=== PATIENT | female | born 1945 | race Caucasian/White ===

== ENCOUNTER 2024-12-17 09:00 | Day surgery (SDC) | payer OTHER, SELFPAY ==
--- NOTE | 2024-12-17 12:30 | ITS.CL.CARDI ---
Sales Order Processor - Cardioversion
Cardioversion
Procedure Report:
Electrophysiology DC cardioversion report
Procedures performed:
1. DC cardioversion to normal sinus rhythm
Indication: Persistent atrial fibrillation
History of present illness: The patient is a 79-year-old woman who is referred for cardioversion. She has been compliant with Eliquis without interruption for over 3 weeks without interruption or missed doses.
Description of procedure: Informed consent was obtained. Sedation provided by anesthesia staff. The patient was cardioverted with 200 J which was unsuccessful. She was then successfully cardioverted with 360 J to normal sinus rhythm. The patient
tolerated the procedure without difficulty.
Complications: None
Assessment/Plan:
1. Continue medical therapy as prescribed with clinical follow-up as scheduled.
== END 2024-12-17 11:38 ==
LOC: CATH 09:00
PROVIDERS: ATTENDING PHYSICIAN Internal Medicine Interventional Cardiology; FAMILY PHYSICIAN Family Medicine; OTHER PHYSICIAN Internal Medicine Cardiovascular Disease
DX: I48.19 Other persistent atrial fibrillation (principal); Z79.01 Long term (current) use of anticoagulants; J44.9 Chronic obstructive pulmonary disease, unspecified; I11.0 Hypertensive heart disease with heart failure; I50.32 Chronic diastolic (congestive) heart failure; Z79.899 Other long term (current) drug therapy; Z79.890 Hormone replacement therapy; Z79.84 Long term (current) use of oral hypoglycemic drugs; Z79.85 Long-term (current) use of injectable non-insulin antidiabetic drugs
CPT/HCPCS: 92960; 93005

== ENCOUNTER 2025-01-22 09:54 | Day surgery (SDC) | payer OTHER, SELFPAY ==
[2025-01-22 10:49] VITALS: BMI 45.1
--- NOTE | 2025-01-22 11:02 | ITS.CL.CARDI ---
Block Inspector - Cardioversion
Cardioversion
Procedure Report:
Date of Procedure: 01/22/25
Procedure: Cardioversion
Indication: Symptomatic atrial fibrillation
Performing Physician: Korey Pozo MD
Technique: The patient was brought to the holding area. Signed informed consent was obtained. A time out was called and performed. The patient was anesthetized by the anesthesia service. Anticoagulation status was reviewed and appropriate. R2 pads
were placed anteriorly and posteriorly. A 200 J synchronized biphasic shock restored normal sinus rhythm without significant bradycardia. There were no complications.
Conclusion: Uncomplicated cardioversion from atrial fibrillation to sinus rhythm.
Recommendation: Routine post cardioversion care. Continue vermin exterminator anticoagulation.
== END 2025-01-22 12:01 | disposition home or self-care (01) ==
LOC: CATH 09:54
PROVIDERS: ATTENDING PHYSICIAN Internal Medicine Interventional Cardiology; FAMILY PHYSICIAN Family Medicine; OTHER PHYSICIAN Internal Medicine Cardiovascular Disease
DX: I48.0 Paroxysmal atrial fibrillation (principal); I49.1 Atrial premature depolarization; I11.0 Hypertensive heart disease with heart failure; I50.32 Chronic diastolic (congestive) heart failure; Z79.01 Long term (current) use of anticoagulants
CPT/HCPCS: 92960; 93005

== ENCOUNTER 2025-01-23 14:41 | Emergency (ER) | payer OTHER, MEDICARE, SELFPAY ==
[2025-01-23 14:52] VITALS: BP 138/64
[2025-01-23 15:04] LABS: Hematocrit 39.0 % (37.0-47.0); Hemoglobin 13.1 g/dL (12.0-16.0); Mean Corp Hgb Conc. 33.6 g/dL (33.0-37.0); Mean Corpuscular Volume 85.7 fL (81.0-99.0); Nucleated Red Blood Cells % 0 %; Platelet Count 166 10^3/uL (130-400); Red Cell Dist. Width 14.3 % (11.5-14.5)
[2025-01-23 15:26] LABS: ALT (SGPT) 25 U/L (0-35); AST (SGOT) 24 U/L (14-36); Albumin 3.9 g/dl (3.5-5.0); Alkaline Phosphatase 51 U/L (38-126); Blood Urea Nitrogen 19 mg/dl (7-17); Calcium 8.4 mg/dl (8.4-10.2); Carbon Dioxide 31 mmol/L (22-30); Chloride 105 mmol/L (98-107); Glucose 96 mg/dl (70-99); Potassium 3.6 mmol/L (3.5-5.1); Sodium 142 mmol/L (135-145); Total Protein 6.6 g/dl (6.3-8.2); eGFR 57.66
[2025-01-23 15:47] VITALS: BP 164/107
[2025-01-23 16:19] VITALS: BMI 45.7
[2025-01-23 16:35] VITALS: BP 137/78
[2025-01-23] MEDS: BUMEX 1 MG IV (16:35)
[2025-01-23 17:18] LABS: Magnesium 2.2 mg/dl (1.6-2.3)
--- NOTE | 2025-01-23 17:33 | ED.GENMED ---
History of Present Illness
General
Chief Complaint: Breathing Problem
Source: patient
Exam Limitations: none
Time Seen by Provider: 01/23/25 15:42
Nursing documentation reviewed up to this point in time: agreed with
History of Present Illness
History of Present Illness:
Patient with history of paroxysmal atrial fibrillation on Eliquis, status post elective outpatient cardioversion yesterday, and history of congestive heart failure on Bumex, presents to ED secondary to increasing shortness of breath with
approximately 4 pounds of weight gain since returning home from cardioversion procedure yesterday. Denies chest pain. Denies fever or chills. Denies vomiting or diarrhea. Denies dizziness.
Past History
Past History
ED Past Medical History: HTN, Hypercholesterolemia, Hypothyroidism and Other (DVT in the right upper extremity); Negative Asthma
Social History
Tobacco: Non-smoker
Review of Systems
Review of Systems
Allergies reviewed?: Yes
All Other Systems: ROS reviewed and negative except as documented in HPI and ROS
Constitutional: Reports no symptoms
Respiratory: Reports trouble breathing; Denies cough
Cardiac: Reports no symptoms; Denies chest pain
ABD/GI: Reports no symptoms
Musculoskeletal: Reports no symptoms
Skin: Reports no symptoms
Neurological: Reports no symptoms
Phy Exam
Physical Exam
Physical Exam:
Physical Exam
General: no apparent distress, not acutely ill. afebrile
Head: nc/at. eomi
Neck: supple. normal range of motion.
Heart: s1/s2 regular rate and rhythm
Lungs: no acute respiratory distress. clear bilaterally
Abdomen: normal bowel sounds. not tender.
Neuro: alert and oriented x 3. no focal neurological deficits
Skin: no rash
Psychiatric: well kept. interactive and cooperative
Extremities: LE b/l nonpitting edema. no calf tenderness.
Scores
Heart Failure Risk
Heart Failure Risk Score: Yes
History of Stroke or TIA: No
History of intubation for respiratory distress: No
Heart rate on ED arrival >/= 110: No
SaO2 <90% on arrival on room air: No
HR >/=110 during 3min walk test (or too ill to perform test): No
ECG has acute ischemic changes: No
Urea >/=12mmol/L (BUN 33.6mg/dL): No
Serum CO2>/=35mmol/L: No
Troponin I or T elevated to GA Level (0.4mg/dL): No
NT-proBNP >/=5,000ng/L (5,000pg/ml): No
HF Risk Score: 0
Admission Status: LOW RISK 2.8% Consider discharge to home with f/u visit to PCP/Foot Roentgenologist
Course
Orders/Labs/Results
Orders:
Orders
01/23/25 14:42
EKG [Electrocardiogram (*1)] Urgent
Reason for Study: Shortness of Breath
EKG- Treatment ONCE
01/23/25 14:58
Complete Blood Count/With Diff Urgent
Comprehensive Metabolic Panel Urgent
Magnesium Urgent
Comment: ADD ON
NT-proBNP Urgent
Troponin I Urgent
Comment: ADD ON
01/23/25 15:42
CR Chest - 2 Views Urgent
Comment:
Reason For Exam: sob
01/23/25 16:19
Add On- LAB Urgent
Tests Added?: magnesium
01/23/25 16:21
Bumetanide [Bumex] 1 mg IV NOW STA
Abnormal Lab Results
01/23/25
14:58
Carbon Dioxide 31 H mmol/L
(22-30)
BUN 19 H mg/dl
(7-17)
01/23/25 14:58
01/23/25 14:58
Vital Signs
Initial and Last Documented VS:
Initial Vital Signs
Temp Pulse Resp Pulse Ox
97.9 F 65 18 96
01/23/25 14:46 01/23/25 14:46 01/23/25 14:46 01/23/25 14:46
Last Documented Vital Signs
Temp Pulse Resp BP Pulse Ox
97.9 F 72 18 139/91 96
01/23/25 14:46 01/23/25 17:59 01/23/25 17:59 01/23/25 17:59 01/23/25 17:59
MDM/Problems Addressed
MDM/Problems Addressed:
Discussed with on-call cardiology, . Decision made to administer Bumex 1 mg IV in ED to start diuresis. Patient will be recommended to increase outpatient Bumex to 1.5 mg daily over the weekend, along with follow-up phone call to
cardiology's office on Sunday. Pt agrees with treatment plan.
Pt given bumex iv in ED with sig. diuresis and improvement in symptoms.
Patient otherwise is afebrile, hemodynamically stable, and appears comfortable, at time of discharge.
*Pulse Oximetry
SaO2: 94
Oxygen Mode of Delivery: Room air
Patient hypoxic: no
*Critical Care Note
Total Time (30-74mins, 75-104mins- exclusive of procedures): Not Applicable
ED Attending Note
-
Portions of this chart may have been created with voice recognition software.� Occasional wrong word or��sound alike� substitutions may have occurred due to the inherent limitations of voice recognition software.
Discharge Plan
Departure
Patient Disposition: Home (Routine Discharge)
Date of Disposition: 01/23/25
Time of Disposition: 17:34
Patient with high blood pressure during this ER visit?: Yes
Condition: Fair
Discharge Problem:
Fluid overload
Instructions: Heart failure - ED (DC)
Prescriptions:
No Action
levothyroxine [Synthroid] 150 mcg Tablet
150 mcg PO HS
Rx Instructions:
Takes an extra pill once per week (8 tabs total per week).
fluticasone propionate 50 mcg/actuation [place],Suspension
1 spray INTRANASAL PRN PRN (Reason: allergies)
cetirizine [Zyrtec] 10 mg Tablet
10 mg PO HS
montelukast [Singulair] 10 mg Tablet
10 mg PO DAILY
diltiazem HCl 180 mg Capsule,Extended Release 24 Hr
180 mg PO BID
bumetanide 1 mg Tablet
1 mg PO DAILY
rosuvastatin 5 mg Tablet
5 mg PO HS
Eliquis 5 mg Tablet
5 mg PO BID
Jardiance 10 mg Tablet
10 mg PO DAILY
Wegovy 1.7 mg/0.75 mL Pen Injector
1.7 mg SC QWEEK
[place] 3 Fish Oil Concentrate Capsule
1,000 mg PO DAILY
coenzyme Q10 [Co Q-10] 200 mg Capsule
200 mg PO HS
cholecalciferol (vitamin D3) 50 mcg (2,000 unit) Capsule
50 mcg PO DAILY
Multaq 400 mg
400 mg PO BID
valacyclovir 1 g
1 g PO DAILY
Cyanacobalamin 2,500 mcg
2,500 mcg PO DAILY
Culturelle Probiotic Chew
1 tab PO HS
Turmeric
500 mg PO DAILY
Referrals:
Claudia Jules MD [Family Provider, Family Practice]
Activity Restrictions/Additional Instructions:
As discussed, over the weekend, please take extra 1/2 tablet of Bumex daily. In addition, please call your fruit cutter office on Sunday to discuss your condition.
Interventions
Interventions:
*Risk Screen - Suicide Last Done: 01/23/25 14:51
*General Assessment Last Done: 01/23/25 14:51
*Neglect/Abuse Screening Last Done: 01/23/25 14:51
*ED- Fall Risk Assessment Last Done: 01/23/25 16:20
*ED COVID-19 Vaccine History Last Done: 01/23/25 14:51
*ED Influenza Vaccine History Last Done: 01/23/25 14:51
*Nursing Disposition Last Done: 01/23/25 18:00
ED- Cardiac Assessment Last Done: 01/23/25 16:21
ED- Pulmonary Assessment Last Done: 01/23/25 16:21
Discharge Date and Time
Discharge Date/Time: 01/23/25 18:01
Print Language: OCCITAN
[2025-01-23 17:55] LABS: Troponin I < 0.012 ng/ml
[2025-01-23 17:59] VITALS: BP 139/91
== END 2025-01-23 18:01 | disposition home or self-care (01) ==
LOC: EMR 14:41
PROVIDERS: Emergency Medicine; EMERGENCY PHYSICIAN Emergency Medicine; FAMILY PHYSICIAN Family Medicine
DX: E87.70 Fluid overload, unspecified (principal); I48.0 Paroxysmal atrial fibrillation; I11.0 Hypertensive heart disease with heart failure; I50.9 Heart failure, unspecified; E78.00 Pure hypercholesterolemia, unspecified; E03.9 Hypothyroidism, unspecified; Z79.01 Long term (current) use of anticoagulants; Z86.718 Personal history of other venous thrombosis and embolism
CPT/HCPCS: 99284; 96374; 71046; 80053; 83735; 83880; 84484; 85025; 93005

== ENCOUNTER 2025-03-26 06:58 | Day surgery (SDC) | payer OTHER, SELFPAY ==
[2025-03-26 07:56] LABS: Glucose - Point of Care 97 mg/dl (70-99)
--- NOTE | 2025-03-26 08:21 | ITS.CL.CARDI ---
Tdp Displays Analyst - Cardioversion
Cardioversion
Procedure Report:
Cardioversion
Procedure Report:
Date of Procedure: 03/26/25
Procedure: Cardioversion
Indication: Symptomatic atrial fibrillation
Performing Physician: Yohan Cruz M.D.
Technique: The patient was brought to the holding area. Signed informed consent was obtained. A time out was called and performed. The patient was anesthetized by the anesthesia service. Anticoagulation status was reviewed and appropriate. R2 pads
were placed anteriorly and posteriorly. A 200 J synchronized biphasic shock restored normal sinus rhythm without significant bradycardia. There were no complications.
Conclusion: Uncomplicated cardioversion from atrial fibrillation to sinus rhythm.
Recommendation: Routine post cardioversion care. Continue terminal computer operator anticoagulation.
== END 2025-03-26 09:15 | disposition home or self-care (01) ==
LOC: CATH 06:58
PROVIDERS: ATTENDING PHYSICIAN Nuclear Medicine Nuclear Cardiology; FAMILY PHYSICIAN Family Medicine; OTHER PHYSICIAN Internal Medicine Cardiovascular Disease
DX: I48.0 Paroxysmal atrial fibrillation (principal); Z79.01 Long term (current) use of anticoagulants; I11.0 Hypertensive heart disease with heart failure; I50.32 Chronic diastolic (congestive) heart failure; E03.9 Hypothyroidism, unspecified
CPT/HCPCS: 82962; 92960; 93005